=== PATIENT | male | born 1985 | race Caucasian/White ===

== ENCOUNTER 2021-01-17 16:18 | Emergency (ER) | payer OTHER ==
[~2021-01-17 16:18] MED LIST: ASPIRIN CHEWABL81 MG PO; NITROSTAT0.4 MG SL
== END 2021-01-17 18:56 | disposition left against medical advice (07) ==
LOC: ER1 16:18
DX: Z53.21 Procedure and treatment not carried out due to patient leaving prior to being seen by health care provider (principal)

== ENCOUNTER 2022-02-03 23:58 | Emergency (ER) | payer OTHER | END 2022-02-04 01:00 | disposition left against medical advice (07) | LOC: ER1 23:58 | DX: L50.0 Allergic urticaria (principal); F17.210 Nicotine dependence, cigarettes, uncomplicated; Z88.0 Allergy status to penicillin; R40.2410 Glasgow coma scale score 13-15, unspecified time | CPT/HCPCS: 99283 ==